=== PATIENT | male | born 1935 | race Caucasian/White ===

== ENCOUNTER → 2018-03-21 | Outpatient (CLI) | payer MEDICARE ==
--- NOTE | 2018-03-21 11:09 | Diagnostic Imaging Report ---
PROCEDURE: CT CHEST WITHOUT CONTRAST CT scan of the chest WITHOUT intravenous contrast, using standard protocol. TECHNIQUE: The chest was scanned utilizing a multidetector helical scanner from the apex to the level of the adrenal glands. No IV contrast was administered per protocol. Coronal and sagittal multiplanar reformations were obtained. COMPARISON: None. INDICATIONS: shortness of breath FINDINGS: Lines/tubes: Left sided pacemaker with lead terminating at the coronary sinus and partially seen lead at the right ventricle. Lungs and Airways: The central airways are patent. There is a 4 mm calcified granuloma in the left upper lobe on series 3, image 61. There are three subpleural nodules in the left lower lobe measuring 3-4 mm on series 3, image 78 and 81. There is subsegmental atelectasis in the right lower lobe. Patchy consolidative opacity at the right lung base. Patchy dependent atelectasis bilaterally. Pleura: The pleural spaces are clear. Heart and mediastinum: The inferior aspect of the heart is not included in the field of view. Streak artifact limits evaluation of the thyroid. No significant mediastinal, hilar or axillary lymphadenopathy is seen. No pericardial effusion. Atherosclerotic calcifications of the thoracic aorta and branch vessels. Coronary atherosclerosis. The main pulmonary artery measures 3.5 cm, consistent with pulmonary arterial hypertension. The ascending aorta is aneurysmal measuring up to 4.5 cm. Small hiatal hernia. Soft tissues: Normal. Abdomen: Limited views of the upper abdomen. There is a subcentimeter hypodense lesion in the right hepatic lobe, too small to characterize, but likely a cyst. There are calcified granulomas in the spleen. Bones: No acute thoracic abnormality. Thoracic kyphosis is present. Old healed right posterior lower rib fractures. IMPRESSION: Patchy consolidation in the right lower lobe, which likely represents atelectasis. Superimposed pneumonia is possible in the appropriate clinical setting. Sequela of prior granulomatous disease with calcified pulmonary nodule and splenic calcifications. Subpleural nodules measuring up to 4 mm in the left lower lobe, which may represent non-calcified granulomas or intrapulmonary lymph nodes. Ascending thoracic aortic aneurysm measuring up to 4.5 cm. Enlarged main pulmonary artery measuring up to 3.5 cm, consistent with pulmonary arterial hypertension. Dictated by: DONI HERNANDEZ M.D. on 03/21/2018 at 11:15 Electronically approved by: DONI HERNANDEZ M.D. on 03/21/2018 at 11:15
== END ==
LOC: CT 09:57
PROVIDERS: ATTEND Internal Medicine Critical Care Medicine
DX: R06.00 Dyspnea, unspecified (principal); Z77.090 Contact with and (suspected) exposure to asbestos; R91.8 Other nonspecific abnormal finding of lung field
CPT/HCPCS: 71250

== ENCOUNTER → 2018-04-19 | Outpatient (CLI) | payer MEDICARE ==
--- NOTE | 2018-04-20 18:09 | Diagnostic Imaging Report ---
EXAM: Modified barium swallow INDICATION: Dysphagia COMPARISON: None FINDINGS: This examination was conducted in conjunction with speech pathologist. Patient was given, by mouth, liquids and solids of various consistencies. Examination showed premature spillage over the base of the tongue and vallecula with all consistencies. There was premature spillage to the piriform sinus with thin liquids only. No laryngeal penetration or aspiration. Mild vallecular and trace piriform sinus, pharyngeal wall and base of tongue residue following swallows of all consistencies IMPRESSION: <Functional swallow. No evidence of aspiration. Please see speech pathology report for detailed description and recommendations.> Signed by: Dr. Sadi Can M.D. on 04/20/2018 6:05 PM
== END ==
LOC: DX 09:20
PROVIDERS: ATTEND Internal Medicine Critical Care Medicine
DX: R13.10 Dysphagia, unspecified (principal)
CPT/HCPCS: 74230; 92611; 97139; G8996; G8997; G8998